=== PATIENT | female | born 1995 | race Caucasian/White ===

== ENCOUNTER 2017-08-08 22:14 | Emergency (ER) | payer OTHER ==
[~2017-08-08] VITALS: Ht 160 cm; Wt 75.5 kg
[2017-08-08 23:29] VITALS: BP 122/81
== END 2017-08-08 23:31 | disposition home or self-care (01) ==
LOC: EMS 22:16
DX: B37.0 Candidal stomatitis (principal); J02.9 Acute pharyngitis, unspecified
CPT/HCPCS: 99282; 99283